=== PATIENT | female | born 1995 | race Caucasian/White ===

== ENCOUNTER 2019-04-11 15:08 | Emergency (ER) | payer OTHER ==
[~2019-04-11] VITALS: Ht 162.6 cm; Wt 56.7 kg
[~2019-04-11 15:08] MED LIST: AMPICILLIN SODIUM PO; PERCOCET 5/3251 TAB PO
== END 2019-04-12 09:50 | disposition home or self-care (01) ==
LOC: ER 15:08
DX: K66.1 Hemoperitoneum (principal); R10.11 Right upper quadrant pain; R10.2 Pelvic and perineal pain

== ENCOUNTER → 2019-04-26 | Outpatient (CLI) | payer OTHER | END | disposition home or self-care (01) | LOC: SONOGRAMA 14:11 | DX: R10.31 Right lower quadrant pain (principal); R10.32 Left lower quadrant pain ==